=== PATIENT | female | born 1995 | race African-American/Black ===

== ENCOUNTER 2018-02-26 20:39 | Emergency (ER) | payer SELFPAY ==
--- NOTE | 2018-02-26 20:42 | PDOC ---
History of Present Illness - History of Present Illness Initial Comments: 02/26/18 21:07 Patient is a 22 year old female with no significant past medical history who presents to the ED with complaints of left ear pain that she states began earlier this week. Patient reports experiencing left ear pain with associated left ear ringing that she states was experienced once before 2 years ago. She reports seeing her physician in [place] who states she an excess build up of wax , followed by advising she abstain from using Q -tips in her ear, until the build up was removed naturally. Patient reports using over the counter wax removal drops from [facility] with no relief, prompting her to come into the ED for further evaluation. Denies chest pain, Sob. Denies nausea, vomiting. Denies fevers, chills. Denies trauma to affected area. Denies dysuria, hematuria. Denies diarrhea, constipation. Denies any other symptoms. Allergies: None Social history: No illicit drugs. No alcohol. No smoking. Surgical history: None PMD: None Adult ROS General: No fevers or chills, no weakness, no weight loss HEENT: +Left ear pain. No change in vision. No sore throat, Cardiovascular: No chest pain or shortness of breath Respiratory:No cough, or wheezing. Gastrointestinal: No nausea, vomiting, diarrhea or constipation, No rectal bleeding Genitourinary: No dysuria, hematuria, or frequency Musculoskeletal: No joint or muscle pain or swelling Neurologic: No headache, vertigo, dizziness or loss of consciousness Psychiatric: No depression Skin: No rashes or easy bruising Endocrine: No increased thirst or abnormal weight change Allergic: No skin or latex allergy All other systems reviewed and normal Basic PE GENERAL: The patient is awake, alert, and fully oriented, in no acute distress. HEAD: Normal with no signs of trauma. EYES: Pupils equal, round and reactive to light, extraocular movements intact, sclera anicteric, conjunctiva clear. EARS: +Moderate amount of cerumen in right ear canal. +Totally blocked left ear canal with excess seruman. No tenderness with palpation of the mastoid. No lymphadenopathy. EXTREMITIES: Normal range of motion, no edema. NEUROLOGICAL: Normal speech, normal gait. PSYCH: Normal mood, normal affect. SKIN: Warm, Dry, normal turgor, no rashes or lesions noted. <Chip Jordan - Last Filed: 02/26/18 21:07> - General History Source: Patient Exam Limitations: No Limitations - History of Present Illness Initial Comments: 02/26/18 21:01 A portion of this note was documented by scribe services under my direction. I have reviewed the details of the note, within reason, and agree with the documentation. The case summary and management plan written by me. Procedure note: Irrigation of external ear canal to remove excess cerumen Peroxide was placed in the left ear canal and left in the canal for approximately 10 minutes Ear canal was then irrigated with warm water using a syringe and a small piece of tubing. Irrigation was continued until the excess cerumen was irrigated from the canal. Patient tolerated procedure well. Exam post removal of cerumen shows a normal tympanic membrane and no cerumen in the canal. Assessment and plan: This is a 22-year-old female who comes in complaining of excess cerumen in her left ear with clogging of the ear. Patient had the cerumen removed by irrigation which she tolerated well and was discharged home. Patient had a moderate amount of cerumen in her other ear and was told to get ijih-vji-exiopiq drops put in the ear on a nightly basis for the next 2 weeks. <Hernan Rodas I - Last Filed: 02/26/18 21:42> - General Chief Complaint: Ear Problem Stated Complaint: LEFT EAR BLOCKED Time Seen by Provider: 02/26/18 20:42 Past History <Chip Jordan - Last Filed: 02/26/18 21:07> <Hernan Rodas I - Last Filed: 02/26/18 21:42> - Past Medical History Allergies/Adverse Reactions: Allergies Allergy/AdvReac Type Severity Reaction Status Date / Time No Known Allergies Allergy Verified 02/26/18 20:52 Home Medications: Ambulatory Orders NK [No Known Home Medication] 02/26/18 *Physical Exam - Vital Signs Last Vital Signs Temp Pulse Resp BP Pulse Ox 98.4 F 72 16 121/74 100 02/26/18 20:53 02/26/18 20:53 02/26/18 20:53 02/26/18 20:53 02/26/18 20:53 <Chip Jordan - Last Filed: 02/26/18 21:07> *DC/Admit/Observation/Transfer - Attestations Scribe Attestion: 02/26/18 21:07 Documentation prepared by Chip Jordan, acting as claim review medical director for Hernan Rodas MD. <Chip Jordan - Last Filed: 02/26/18 21:07> - Discharge Dispostion Decision to Admit order: No <Hernan Rodas I - Last Filed: 02/26/18 21:42> Diagnosis at time of Disposition: Left ear impacted cerumen - Discharge Dispostion Disposition: HOME Condition at time of disposition: Stable - Patient Instructions Additional Instructions: Purchase some lhoi-fgu-xtjloit earwax removal such as Debrox and use it in your right ear ear at night for the next 2 weeks as directed on the box. Return to the emergency department immediately with ANY new, persistent or worsening symptoms. Continue any medications as previously prescribed by your physician. You should follow up with your primary doctor as soon as possible regarding today's emergency department visit. . Please make sure your doctor reviews the results of your emergency evaluation. Thank you for coming to the Emergency Department today for your care. It was a pleasure to see you today. Please note that your evaluation is INCOMPLETE until you follow-up with your doctor.
[2018-02-26 20:59] VITALS: BP 121/74; PULSE 72; TEMP 98.4; BMI 25.2
== END 2018-02-26 21:46 | disposition home or self-care (01) ==
LOC: FER 20:39
PROC: 3E1B78Z Irrigation of Ear using Irrigating Substance, Via Natural or Artificial Opening (ICD-10-PCS; principal; 2018-02-26)
DX: H61.22 Impacted cerumen, left ear (principal)
CPT/HCPCS: 99281-25